=== PATIENT | male | born 1940 | race Caucasian/White ===

== ENCOUNTER 2019-11-25 13:38 | Emergency (ER) | payer MEDICARE, OTHER | END 2019-11-25 14:49 | disposition left against medical advice (07) | LOC: DL.ED 13:38 | DX: Z53.21 Procedure and treatment not carried out due to patient leaving prior to being seen by health care provider (principal) ==

== ENCOUNTER 2023-03-25 23:29 | Emergency (ER) | payer MEDICARE, OTHER | END 2023-03-26 01:23 | disposition home or self-care (01) | LOC: DL.ED 23:29 | DX: N99.89 Other postprocedural complications and disorders of genitourinary system (principal); R33.8 Other retention of urine; Z88.0 Allergy status to penicillin; Z88.1 Allergy status to other antibiotic agents | CPT/HCPCS: 51702; 99283; C1758 ==

== ENCOUNTER 2024-01-16 17:39 | Observation (INO) | payer MEDICARE, OTHER ==
[2024-01-16] MEDS ORDERED: Sodium Chloride 0.9% 10 ML Syringe FLUSH PRN (17:54)
[2024-01-16 18:06] LABS: BASOPHILS PERCENT AUTO 0.6 % (0.0-1.0); EOSINOPHILS PERCENT AUTO 0.7 % (1.0-3.0); HEMATOCRIT 44.5 % (40.0-54.0); HEMOGLOBIN 15.6 g/dL (14.0-18.0); LYMPHOCYTES PERCENT AUTO 10.7 % (20.5-50.1); MEAN CORPUSCULAR HEMOGLOBIN 32.2 pg (27.0-34.0); MEAN CORPUSCULAR HGB CONC 35.1 g/dL (33.0-35.0); MEAN CORPUSCULAR VOLUME 91.9 fL (80-100); MONOCYTES PERCENT AUTO 10.6 % (2-8); NEUTROPHILS PERCENT AUTO 77.4 % (42.2-75.2); PLATELET COUNT,PLT 151 10^3/uL (150-450); RED BLOOD CELL COUNT 4.84 10^6/uL (4.6-6.2); WHITE BLOOD CELL COUNT,WBC 8.7 10^3/uL (5.0-10.0)
[2024-01-16 18:32] LABS: ALBUMIN 3.1 g/dL (3.4-5.0); ANION GAP 9.8 mEq/L (7-13); BILIRUBIN TOTAL 1.1 mg/dL (0.2-1.0); CALCIUM 8.7 mg/dL (8.5-10.1); CREATININE 1.27 mg/dL (0.70-1.30); EST CRCL DRUG DOSING (CG) 50.07 mL/min; LACTIC ACID 1.3 mmol/L (0.4-2.0); MAGNESIUM 1.8 mg/dL (1.8-2.4); POTASSIUM,K 3.8 mmol/L (3.5-5.1); PROTEIN TOTAL,TP 6.8 g/dL (6.4-8.2)
[2024-01-16 18:37] LABS: A/G RATIO 0.84
[2024-01-16 19:01] LABS: APPEARANCE,URINE CLEAR (CLEAR); BILIRUBIN,URINE NEGATIVE (NEGATIVE); COLOR,URINE YELLOW (YELLOW); GLUCOSE,URINE 500 (NEGATIVE); KETONES,URINE NEGATIVE (NEGATIVE); LEUKOCYTE ESTERASE,URINE NEGATIVE (NEGATIVE); NITRITE,URINE NEGATIVE (NEGATIVE); OCCULT BLOOD,URINE TRACE-INTACT (NEGATIVE); PROTEIN,URINE 100 (NEGATIVE); UROBILINOGEN,URINE 0.2 mg/dL (0.2-1.0)
[2024-01-16 19:09] LABS: INR 1.1 (0.9-1.2); PTT,PARTIAL THROMBOPLSTIN TIME 46.8 SEC (22.0-34.0)
[2024-01-16 19:22] LABS: BACTERIA,URINE RARE /HPF (0-FEW/HPF); EPITHELIAL CELLS,URINE RARE /HPF (NOT SEEN); WBC,URINE 0-5 /HPF (0-5/HPF)
[2024-01-16] MEDS: Dexamethasone 4 MG/ML SDV IVPUSH ONE (20:32)
[2024-01-16] MEDS: Acetaminophen 325 MG Tab PO ONE (20:33)
[2024-01-16] MEDS ORDERED: diphenhydrAMINE 25 MG Tab PO PRN (21:28)
[2024-01-16] MEDS ORDERED: Acetaminophen 325 MG Tab PO PRN (22:27)
[2024-01-16] MEDS: Pantoprazole 40 MG Vial IVPUSH ONE (23:57)
[2024-01-17] MEDS: Nirmatrelvir/Ritonavir 300 MG/100 MG Dosepak PO SCH (00:04)
[2024-01-17] MEDS: Nirmatrelvir/Ritonavir 150 MG/100 MG Dose Pack (Renal Dose) PO SCH (10:19)
== END 2024-01-17 14:50 | disposition home or self-care (01) ==
LOC: DL.ED 17:39 → DL.MS 19:34
PROVIDERS: ADMIT Internal Medicine; ATTEND Internal Medicine
DX: R53.1 Weakness (principal); Z87.891 Personal history of nicotine dependence; Z88.0 Allergy status to penicillin
CPT/HCPCS: 36415; 70450; 71101; 71250; 72125; 72128; 72131; 74176; 80053; 80307; 81001; 82728; 83605; 83615; 83690; 83735; 83880; 84484; 85025; 85379; 85610; 85730; 87040; 87428; 93005; 96374; 97161; 97165; 99222; 99285; A9270; J1100; J1642; J2470; 93010; 96375; 99284; G0378

== ENCOUNTER 2024-02-04 12:46 | Inpatient (IN) | payer MEDICARE, OTHER ==
[2024-02-04 13:49] LABS: BASOPHILS PERCENT AUTO 0.5 % (0.0-1.0); EOSINOPHILS PERCENT AUTO 0.1 % (1.0-3.0); HEMATOCRIT 44.1 % (40.0-54.0); HEMOGLOBIN 15.2 g/dL (14.0-18.0); LYMPHOCYTES PERCENT AUTO 5.6 % (20.5-50.1); MEAN CORPUSCULAR HEMOGLOBIN 31.8 pg (27.0-34.0); MEAN CORPUSCULAR HGB CONC 34.5 g/dL (33.0-35.0); MEAN CORPUSCULAR VOLUME 92.3 fL (80-100); MONOCYTES PERCENT AUTO 7.7 % (2-8); NEUTROPHILS PERCENT AUTO 86.1 % (42.2-75.2); PLATELET COUNT,PLT 170 10^3/uL (150-450); RED BLOOD CELL COUNT 4.78 10^6/uL (4.6-6.2); WHITE BLOOD CELL COUNT,WBC 17.2 10^3/uL (5.0-10.0)
[2024-02-04 14:15] LABS: A/G RATIO 0.68; ALBUMIN 2.8 g/dL (3.4-5.0); ANION GAP 14.1 mEq/L (7-13); BILIRUBIN TOTAL 1.4 mg/dL (0.2-1.0); BUN/CREATININE RATIO 13.2 (No establ ref range); CALCIUM 8.4 mg/dL (8.5-10.1); CREATININE 1.52 mg/dL (0.70-1.30); EST CRCL DRUG DOSING (CG) 41.83 mL/min; MAGNESIUM 1.7 mg/dL (1.8-2.4); POTASSIUM,K 4.1 mmol/L (3.5-5.1); PROTEIN TOTAL,TP 6.9 g/dL (6.4-8.2)
[2024-02-04 14:49] LABS: LACTIC ACID 2.2 mmol/L (0.4-2.0)
[2024-02-04] MEDS: Magnesium Sulfate/Water Premix 2 GM in Premix Bag 1 BAG IV ONE (14:57)
[2024-02-04] MEDS: Levofloxacin/Dextrose 5%-Water 500 MG in Premix Bag 1 BAG IV ONE (14:57)
[2024-02-04] MEDS: Sodium Chloride 0.9% 2,500 ML IV ONE (14:57)
[2024-02-04] MEDS ORDERED: Metoclopramide 10 MG/2 ML SDV IV PRN (16:07)
[2024-02-04] MEDS ORDERED: Bisacodyl 5 MG Tab PO PRN (16:07)
[2024-02-04] MEDS ORDERED: Ondansetron 4 MG/2 ML SDV IVPUSH PRN (16:07)
[2024-02-04] MEDS ORDERED: Sennosides/Docusate Sodium 50-8.6 MG Tab PO PRN (16:07)
[2024-02-04] MEDS ORDERED: Polyethylene Glycol 3350 Powder 17 GM Packet PO PRN (16:07)
[2024-02-04] MEDS ORDERED: Naloxone 2 MG/2 ML Syringe IVPUSH PRN (16:07)
[2024-02-04] MEDS ORDERED: HYDROmorphone 0.5 MG/0.5 ML Syringe IVPUSH PRN (16:07)
[2024-02-04] MEDS ORDERED: Magnesium Hydroxide 400 MG/5 ML Susp 30 ML Cup PO PRN (16:07)
[2024-02-04] MEDS ORDERED: Metoprolol Tartrate 5 MG/5 ML SDV IVPUSH PRN (16:17)
[2024-02-04] MEDS ORDERED: hydrALAZINE 20 MG/ML SDV IVPUSH PRN (16:17)
[2024-02-04] MEDS ORDERED: traMADol 50 MG Tab PO PRN (16:23)
[2024-02-04 16:25] LABS: C-REACTIVE PROTEIN 8.12 ng/dL (<=0.50)
[2024-02-04 16:29] LABS: HEMOGLOBIN A1C 9.7 % (<5.7)
[2024-02-04] MEDS: Saccharomyces Boulardii (Probiotic) 250 MG Cap PO SCH (22:00)
[2024-02-04] MEDS: guaiFENesin 600 MG Tab.ER PO SCH (22:00)
[2024-02-05] MEDS: Acetaminophen 325 MG Tab PO PRN (01:13)
[2024-02-05] MEDS ORDERED: Pantoprazole 40 MG Tab.CR PO SCH (06:00)
[2024-02-05 06:32] LABS: BASOPHILS PERCENT AUTO 0.6 % (0.0-1.0); EOSINOPHILS PERCENT AUTO 0.7 % (1.0-3.0); HEMOGLOBIN 13.5 g/dL (14.0-18.0); LYMPHOCYTES PERCENT AUTO 12.5 % (20.5-50.1); MEAN CORPUSCULAR HEMOGLOBIN 31.8 pg (27.0-34.0); MEAN CORPUSCULAR HGB CONC 33.8 g/dL (33.0-35.0); MEAN CORPUSCULAR VOLUME 94.3 fL (80-100); MONOCYTES PERCENT AUTO 9.8 % (2-8); NEUTROPHILS PERCENT AUTO 76.4 % (42.2-75.2); PLATELET COUNT,PLT 139 10^3/uL (150-450); RED BLOOD CELL COUNT 4.24 10^6/uL (4.6-6.2); WHITE BLOOD CELL COUNT,WBC 10.8 10^3/uL (5.0-10.0)
[2024-02-05 07:05] LABS: ALBUMIN 2.3 g/dL (3.4-5.0); BILIRUBIN TOTAL 1.8 mg/dL (0.2-1.0); BUN/CREATININE RATIO 14.6 (No establ ref range); C-REACTIVE PROTEIN 14.54 ng/dL (<=0.50); CALCIUM 8.3 mg/dL (8.5-10.1); CREATININE 1.23 mg/dL (0.70-1.30); EST CRCL DRUG DOSING (CG) 51.7 mL/min; PROTEIN TOTAL,TP 6.1 g/dL (6.4-8.2); T4 FREE 1.06 ng/dL (0.76-1.46); TSH ULTRASENSITIVE 0.25 uIU/mL (0.36-3.74)
[2024-02-05 07:13] LABS: A/G RATIO 0.61
[2024-02-05] MEDS: Pantoprazole 40 MG Vial IVPUSH ONE (08:58)
[2024-02-05] MEDS: Pantoprazole 40 MG Tab.CR PO SCH ×2 (08:58→16:12)
[2024-02-05] MEDS: Azithromycin 500 MG in Sodium Chloride 0.9% 250 ML IV SCH (08:59)
[2024-02-05] MEDS: cefTRIAXone 1 GM Vial IVPUSH SCH (09:00)
[2024-02-05] MEDS: Melatonin 3 MG Tab PO PRN (20:18)
[2024-02-05] MEDS: Sodium Chloride 0.9% 10 ML Syringe FLUSH PRN (20:19)
[2024-02-05] MEDS ORDERED: Glucagon,Human Recombinant 1 MG Vial IM PRN (20:30)
[2024-02-05] MEDS ORDERED: 50% Dextrose in Water 50 ML Syringe IVPUSH PRN (20:30)
[2024-02-05] MEDS: Ampicillin/Sulbactam Na 1.5 GM in Sodium Chloride 0.9% 100 ML IV SCH (23:38)
[2024-02-06 07:00] LABS: BASOPHILS PERCENT AUTO 0.4 % (0.0-1.0); EOSINOPHILS PERCENT AUTO 1.6 % (1.0-3.0); HEMATOCRIT 40.5 % (40.0-54.0); HEMOGLOBIN 13.7 g/dL (14.0-18.0); LYMPHOCYTES PERCENT AUTO 9.5 % (20.5-50.1); MEAN CORPUSCULAR HEMOGLOBIN 31.8 pg (27.0-34.0); MEAN CORPUSCULAR HGB CONC 33.8 g/dL (33.0-35.0); MONOCYTES PERCENT AUTO 11.3 % (2-8); NEUTROPHILS PERCENT AUTO 77.2 % (42.2-75.2); PLATELET COUNT,PLT 140 10^3/uL (150-450); RED BLOOD CELL COUNT 4.31 10^6/uL (4.6-6.2); WHITE BLOOD CELL COUNT,WBC 10.7 10^3/uL (5.0-10.0)
[2024-02-06 07:40] LABS: ALBUMIN 2.3 g/dL (3.4-5.0); BILIRUBIN TOTAL 1.8 mg/dL (0.2-1.0); BUN/CREATININE RATIO 12.1 (No establ ref range); C-REACTIVE PROTEIN 15.42 ng/dL (<=0.50); CALCIUM 8.3 mg/dL (8.5-10.1); CREATININE 1.16 mg/dL (0.70-1.30); EST CRCL DRUG DOSING (CG) 54.82 mL/min; MAGNESIUM 1.7 mg/dL (1.8-2.4); PROTEIN TOTAL,TP 6.3 g/dL (6.4-8.2)
[2024-02-06 07:43] LABS: A/G RATIO 0.58
[2024-02-06] MEDS ORDERED: 50% Dextrose in Water 50 ML Syringe IVPUSH PRN (07:58)
[2024-02-06] MEDS ORDERED: Glucagon,Human Recombinant 1 MG Vial IM PRN (07:58)
[2024-02-06] MEDS: Insulin Glarg,Human.Rec.Analog 100 Unit/ML 10 ML Vial SUBCUT SCH (08:43)
[2024-02-06] MEDS: Insulin Lispro 100 Units/ML 3 ML Vial SUBCUT SCH (08:44)
[2024-02-06] MEDS: Magnesium Sulfate/Water Premix 2 GM in Premix Bag 1 BAG IV ONE ×2 (08:47→20:01)
[2024-02-06] MEDS: Albuterol/Ipratropium 3.0-0.5 MG/3 ML Neb Soln NEB PRN (11:31)
[2024-02-06] MEDS: Alteplase 2 MG Vial IV ONE (13:14)
[2024-02-06] MEDS: Empagliflozin 10 MG Tab PO SCH (20:01)
[2024-02-06] MEDS: guaiFENesin 600 MG Tab.ER PO SCH (20:01)
[2024-02-06] MEDS: Sodium Chloride 0.9% 10 ML Syringe FLUSH SCH (20:07)
[2024-02-06] MEDS ORDERED: Insulin Glarg,Human.Rec.Analog 100 Unit/ML 10 ML Vial SUBCUT SCH (21:00)
[2024-02-07 06:37] LABS: BASOPHILS PERCENT AUTO 0.6 % (0.0-1.0); EOSINOPHILS PERCENT AUTO 2.8 % (1.0-3.0); HEMATOCRIT 39.4 % (40.0-54.0); HEMOGLOBIN 13.2 g/dL (14.0-18.0); LYMPHOCYTES PERCENT AUTO 15.5 % (20.5-50.1); MEAN CORPUSCULAR HEMOGLOBIN 31.6 pg (27.0-34.0); MEAN CORPUSCULAR HGB CONC 33.5 g/dL (33.0-35.0); MEAN CORPUSCULAR VOLUME 94.3 fL (80-100); MONOCYTES PERCENT AUTO 12.8 % (2-8); NEUTROPHILS PERCENT AUTO 68.3 % (42.2-75.2); PLATELET COUNT,PLT 140 10^3/uL (150-450); RED BLOOD CELL COUNT 4.18 10^6/uL (4.6-6.2); WHITE BLOOD CELL COUNT,WBC 8.5 10^3/uL (5.0-10.0)
[2024-02-07 06:55] LABS: ALBUMIN 2.2 g/dL (3.4-5.0); BILIRUBIN TOTAL 1.1 mg/dL (0.2-1.0); BUN/CREATININE RATIO 12.2 (No establ ref range); C-REACTIVE PROTEIN 15.24 ng/dL (<=0.50); CALCIUM 8.3 mg/dL (8.5-10.1); CREATININE 1.31 mg/dL (0.70-1.30); EST CRCL DRUG DOSING (CG) 48.54 mL/min; MAGNESIUM 2.3 mg/dL (1.8-2.4); PROTEIN TOTAL,TP 6.4 g/dL (6.4-8.2)
[2024-02-07 07:05] LABS: A/G RATIO 0.52
[2024-02-07] MEDS: Glimepiride 2 MG Tab PO SCH (08:08)
[2024-02-07] MEDS: Dexamethasone 2 MG Tab PO ONE (13:42)
[2024-02-07] MEDS: Fluconazole/Normal Saline 200 MG in Premix Bag 1 BAG IV ONE (13:45)
[2024-02-07] MEDS: Sodium Chloride 0.9% 1,000 ML IV SCH (16:31)
[2024-02-08 06:31] LABS: BASOPHILS PERCENT AUTO 0.4 % (0.0-1.0); EOSINOPHILS PERCENT AUTO 0.1 % (1.0-3.0); HEMOGLOBIN 13.8 g/dL (14.0-18.0); LYMPHOCYTES PERCENT AUTO 11.1 % (20.5-50.1); MEAN CORPUSCULAR HEMOGLOBIN 31.5 pg (27.0-34.0); MEAN CORPUSCULAR HGB CONC 33.7 g/dL (33.0-35.0); MEAN CORPUSCULAR VOLUME 93.6 fL (80-100); MONOCYTES PERCENT AUTO 8.7 % (2-8); NEUTROPHILS PERCENT AUTO 79.7 % (42.2-75.2); PLATELET COUNT,PLT 170 10^3/uL (150-450); RED BLOOD CELL COUNT 4.38 10^6/uL (4.6-6.2); WHITE BLOOD CELL COUNT,WBC 8.5 10^3/uL (5.0-10.0)
[2024-02-08 06:56] LABS: ALBUMIN 2.3 g/dL (3.4-5.0); ANION GAP 16.8 mEq/L (7-13); BILIRUBIN TOTAL 0.8 mg/dL (0.2-1.0); BUN/CREATININE RATIO 16.5 (No establ ref range); CALCIUM 8.7 mg/dL (8.5-10.1); CREATININE 1.39 mg/dL (0.70-1.30); EST CRCL DRUG DOSING (CG) 45.75 mL/min; MAGNESIUM 2.2 mg/dL (1.8-2.4); POTASSIUM,K 4.8 mmol/L (3.5-5.1); PROTEIN TOTAL,TP 6.8 g/dL (6.4-8.2)
[2024-02-08 07:01] LABS: A/G RATIO 0.51
[2024-02-08] MEDS: Dexamethasone 2 MG Tab PO SCH (08:30)
[2024-02-08] MEDS: Fluconazole 100 MG Tab PO SCH (08:31)
[2024-02-08] MEDS ORDERED: Mineral Oil/Petrolatum/Phenylephrine/Shark Liver Oil Oint 57 GM Tube RECTAL PRN (18:12)
== END 2024-02-09 12:08 | disposition swing bed (61) | DRG 872 ==
LOC: DL.ED 12:46 → DL.MS 14:57 → DL.ED 15:28
PROVIDERS: ADMIT Internal Medicine; ATTEND Internal Medicine
DX: A41.9 Sepsis, unspecified organism (principal); D84.9 Immunodeficiency, unspecified; J18.9 Pneumonia, unspecified organism; E87.20 Acidosis, unspecified; E86.0 Dehydration; R73.9 Hyperglycemia, unspecified; Z88.0 Allergy status to penicillin; N17.9 Acute kidney failure, unspecified; C34.90 Malignant neoplasm of unspecified part of unspecified bronchus or lung; H54.7 Unspecified visual loss; J44.9 Chronic obstructive pulmonary disease, unspecified; K21.9 Gastro-esophageal reflux disease without esophagitis; N40.1 Benign prostatic hyperplasia with lower urinary tract symptoms; R63.4 Abnormal weight loss; E11.65 Type 2 diabetes mellitus with hyperglycemia; E83.42 Hypomagnesemia; R79.89 Other specified abnormal findings of blood chemistry; E88.09 Other disorders of plasma-protein metabolism, not elsewhere classified; Z68.25 Body mass index [BMI] 25.0-25.9, adult; Z87.891 Personal history of nicotine dependence; Z86.16 Personal history of COVID-19; Z79.60 Long term (current) use of unspecified immunomodulators and immunosuppressants; Z88.1 Allergy status to other antibiotic agents; Z88.8 Allergy status to other drugs, medicaments and biological substances; Z79.899 Other long term (current) drug therapy
CPT/HCPCS: 36415; 70450; 71045; 71250; 76770; 80053; 82306; 82947; 83036; 83605; 83735; 84145; 84439; 84443; 84484; 85025; 86140; 87040; 87428-QW; 93005; 93010; 94010; 94667; 94668; 96374; 97110-GO; 97116-GP; 97161-GP; 97165-GO; 97530-GO; 97530-GP; 99211; 99223; 99232; 99233; 99238; 99285; 99285-25; A9270-GY; J0295; J0456; J0696; J1450; J1815-GY; J1956; J3475; J3490; J7030; J7050; J7620-GY; J8540

== ENCOUNTER 2024-02-09 12:08 | Inpatient (IN) | payer MEDICARE, OTHER ==
[2024-02-08] MEDS: Sodium Chloride 0.9% 10 ML Syringe FLUSH SCH (22:30)
[~2024-02-09 12:08] MED LIST: 50% Dextrose in Water 50 ML Syringe IVPUSH PRN; Acetaminophen 325 MG Tab PO PRN; Bisacodyl 5 MG Tab PO PRN; Glucagon,Human Recombinant 1 MG Vial IM PRN; Magnesium Hydroxide 400 MG/5 ML Susp 30 ML Cup PO PRN; Metoclopramide 10 MG/2 ML SDV IV PRN; Metoprolol Tartrate 5 MG/5 ML SDV IVPUSH PRN; Mineral Oil/Petrolatum/Phenylephrine/Shark Liver Oil Oint 57 GM Tube RECTAL PRN; Naloxone 2 MG/2 ML Syringe IVPUSH PRN; Ondansetron 4 MG/2 ML SDV IVPUSH PRN; Polyethylene Glycol 3350 Powder 17 GM Packet PO PRN; Sennosides/Docusate Sodium 50-8.6 MG Tab PO PRN; Sodium Chloride 0.9% 10 ML Syringe FLUSH PRN; hydrALAZINE 20 MG/ML SDV IVPUSH PRN; traMADol 50 MG Tab PO PRN
[2024-02-09] MEDS: Albuterol/Ipratropium 3.0-0.5 MG/3 ML Neb Soln NEB PRN (16:34)
[2024-02-09] MEDS: Insulin Lispro 100 Units/ML 3 ML Vial SUBCUT SCH (17:05)
[2024-02-09] MEDS: Pantoprazole 40 MG Tab.CR PO SCH (17:06)
[2024-02-09] MEDS: Ampicillin/Sulbactam Na 1.5 GM in Sodium Chloride 0.9% 100 ML IV SCH (17:06)
[2024-02-09] MEDS: guaiFENesin 600 MG Tab.ER PO SCH (21:14)
[2024-02-09] MEDS: Melatonin 3 MG Tab PO PRN (21:15)
[2024-02-09] MEDS: Saccharomyces Boulardii (Probiotic) 250 MG Cap PO SCH (21:15)
[2024-02-10] MEDS: Glimepiride 2 MG Tab PO SCH (09:13)
[2024-02-10] MEDS: Azithromycin 500 MG in Sodium Chloride 0.9% 250 ML IV SCH (09:14)
[2024-02-10] MEDS: Dexamethasone 2 MG Tab PO SCH (09:14)
[2024-02-10] MEDS: Fluconazole 100 MG Tab PO SCH (09:14)
[2024-02-11 06:27] LABS: HEMATOCRIT 39.1 % (40.0-54.0); MEAN CORPUSCULAR HEMOGLOBIN 31.8 pg (27.0-34.0); MEAN CORPUSCULAR HGB CONC 33.2 g/dL (33.0-35.0); MEAN CORPUSCULAR VOLUME 95.6 fL (80-100); PLATELET COUNT,PLT 210 10^3/uL (150-450); RED BLOOD CELL COUNT 4.09 10^6/uL (4.6-6.2)
[2024-02-11 06:32] LABS: BASOPHILS PERCENT AUTO 0.6 % (0.0-1.0); EOSINOPHILS PERCENT AUTO 0.5 % (1.0-3.0); LYMPHOCYTES PERCENT AUTO 23.4 % (20.5-50.1); MONOCYTES PERCENT AUTO 11.9 % (2-8); NEUTROPHILS PERCENT AUTO 63.6 % (42.2-75.2)
[2024-02-11 06:53] LABS: ALBUMIN 2.3 g/dL (3.4-5.0); ANION GAP 13.1 mEq/L (7-13); BILIRUBIN TOTAL 0.4 mg/dL (0.2-1.0); C-REACTIVE PROTEIN 2.43 ng/dL (<=0.50); CALCIUM 8.2 mg/dL (8.5-10.1); CREATININE 1.28 mg/dL (0.70-1.30); EST CRCL DRUG DOSING (CG) 49.68 mL/min; MAGNESIUM 1.8 mg/dL (1.8-2.4); POTASSIUM,K 4.1 mmol/L (3.5-5.1); PROTEIN TOTAL,TP 6.3 g/dL (6.4-8.2)
[2024-02-11 06:57] LABS: A/G RATIO 0.58
[2024-02-11 08:25] LABS: LYMPHOCYTES PERCENT MAN 23 % (20-50); MONOCYTES PERCENT MAN 10 % (2-8); PLATELET COUNT ESTIMATE ADEQUATE; SEG NEUTROPHILS PERCENT MAN 67 % (42-75)
[2024-02-11] MEDS: metFORMIN 500 MG Tab PO SCH (17:24)
[2024-02-11] MEDS: Temazepam 15 MG Cap PO PRN (22:17)
[2024-02-14] MEDS: Hydrochlorothiazide/Triamterene 25-37.5 Tab PO SCH (08:14)
== END 2024-02-14 14:15 | disposition home or self-care (01) | DRG 947 ==
LOC: DL.MS 12:08
PROVIDERS: ADMIT Internal Medicine; ATTEND Internal Medicine
DX: R53.1 Weakness (principal); J18.9 Pneumonia, unspecified organism; D84.9 Immunodeficiency, unspecified; J44.0 Chronic obstructive pulmonary disease with (acute) lower respiratory infection; K21.9 Gastro-esophageal reflux disease without esophagitis; E11.9 Type 2 diabetes mellitus without complications; H54.7 Unspecified visual loss; J43.9 Emphysema, unspecified; K76.0 Fatty (change of) liver, not elsewhere classified; R79.89 Other specified abnormal findings of blood chemistry; E88.09 Other disorders of plasma-protein metabolism, not elsewhere classified; N40.1 Benign prostatic hyperplasia with lower urinary tract symptoms; Z87.891 Personal history of nicotine dependence; Z86.16 Personal history of COVID-19; Z79.60 Long term (current) use of unspecified immunomodulators and immunosuppressants; Z88.1 Allergy status to other antibiotic agents; Z88.8 Allergy status to other drugs, medicaments and biological substances; Z85.118 Personal history of other malignant neoplasm of bronchus and lung; Z79.899 Other long term (current) drug therapy
CPT/HCPCS: 36415; 80053; 82947; 83735; 85025; 86140; 94640; 94668; 97110-GO; 97110-GP; 97116-GP; 97161-GP; 97165-GO; 97530-GO; 97530-GP; A9270-GY; J0295; J0456; J1642; J3490; J7050; J7620-GY; J8540